=== PATIENT | male | born 1960 ===

== ENCOUNTER → 2019-12-17 08:00 | Outpatient (CLI) | payer OTHER | END | disposition home or self-care (01) | LOC: LAB 08:00 → ADM 14:45 → EDSTATUS 12-24 14:45 → AMB-ENDOS 12-24 14:45 | PROVIDERS: ATTEND Colon & Rectal Surgery | DX: U07.1 COVID-19 (principal); K62.5 Hemorrhage of anus and rectum; R19.4 Change in bowel habit; Z12.11 Encounter for screening for malignant neoplasm of colon; Z12.12 Encounter for screening for malignant neoplasm of rectum ==